=== PATIENT | female | born 1930 | race Caucasian/White ===

== ENCOUNTER 2016-10-27 14:18 | Emergency (ER) | payer MEDICARE, BC ==
--- NOTE | ~2016-10-27 | CR58 ---
[facility] A Service [facility] RADIOLOGY TEXT RESULTS PATIENT: BEVERLY WILSON LOCATION: SED : [birth year] UNIT #: [id number] AGE: [address]: Adrian Mcclendon DO SEX: F ORDER DR: [id number] [place] [id number] E MR#: [id number] Acc #: [id number] NAME: BEVERLY WILSON : 1930 SEX: F STUDY DATE/TIME: 10/27/2016 20:38 UNIT: SED ROOM: STUDY DESCRIPTION: CR Cervical Spine 2 or 3 Views Attending Physician: Adrian Mcclendon Ordering Physician: Adrian Mcclendon Primary Care Physician: Darryl Shabazz M.D. MEDICAL IMAGING REPORT This report is preliminary unless electronic signature is present. EXAM Cervical spine 3 views HISTORY Neck pain after syncope and fall today. Injury. FINDINGS 3 views of the cervical spine demonstrate severe degenerative disc space narrowing at C5-C6 and moderate disc space narrowing at C6-C7. Moderate sized anterior marginal osteophyte at C5-C6. Ydwc-jw-dcuprbmn degenerative facet arthropathy in the upper and lower cervical spine. No precervical soft tissue swelling. Scarring in both lung apices. IMPRESSION 1. No fracture. No acute finding in the cervical spine. 2. Severe degenerative disc space narrowing at C5-C6 and moderate disc space narrowing at C6-C7. Dictated by... Lior Wray M.D. THIS IS AN ELECTRONICALLY VERIFIED REPORT Lior Wray M.D. at 10/28/2016 12:59 PM DFL/candido TD: 10/28/2016 09:05 JOB #: [id number] [facility] A Service [facility] RADIOLOGY TEXT RESULTS PATIENT: BEVERLY WILSON LOCATION: SED : [birth year] UNIT #: [id number] AGE: [address]: Adrian Mcclendon DO SEX: F ORDER DR: MEDICAL IMAGING REPORT Page 1 of 1
--- NOTE | ~2016-10-27 | CT71 ---
[facility] A Service of [facility] RADIOLOGY TEXT RESULTS PATIENT: BEVERLY WILSON LOCATION: SED : [birth year] UNIT #: [id number] AGE: [address]: Adrian Mcclendon DO SEX: F ORDER DR: [id number] [place] [id number] E MR#: [id number] Acc #: [id number] NAME: BEVERLY WILSON : 1930 SEX: F STUDY DATE/TIME: 10/27/2016 15:57 UNIT: SED ROOM: STUDY DESCRIPTION: CT Head Wo Contrast Attending Physician: Adrian Mcclendon Ordering Physician: Adrian Mcclendon Primary Care Physician: Darryl Shabazz M.D. MEDICAL IMAGING REPORT This report is preliminary unless electronic signature is present. EXAM Head CT without HISTORY Fell, loss of consciousness. Hit head on the floor. Chest pain, dizziness, seizure-like activity on the way to the hospital, contusion posteriorly on the left side, palpitations. No cancer history. COMMENT Routine noncontrast head CT is reviewed. There is no prior. This CT examination was performed with one or more of the following radiation dose reduction techniques: automatic exposure control, adjustment of mA and/or kV according to patient size, and iterative reconstruction. Soft tissue swelling is seen left parietal area with hemorrhage consistent with a scalp hematoma. There is no evidence for acute intracranial hemorrhage or extraaxial fluid collection. The ventricles are normal in size and configuration and the moreno-white junction is well-maintained. The basilar cisterns are patent. Mastoid air cells are clear. The visualized paranasal sinuses are clear. The patient has had cataract surgery bilaterally. There is generalized atrophy. Periventricular white matter low-attenuation is nonspecific probably due to small vessel disease. No intracranial mass effect. No acute cortical infarct is suspected but if this is the clinical concern followup imaging is recommended preferably with an MRI if the patient is a candidate. IMPRESSION 1. There is a large left parietal scalp hematoma. There is no acute intracranial injury. If there is clinical concern for acute CVA, followup imaging is recommended preferably with MRI. 2. Atrophy and probable mild sequelae of small vessel disease. [facility] A Service of [facility] RADIOLOGY TEXT RESULTS PATIENT: BEVERLY WILSON [place] [facility] [place] [birth year] UNIT #: [id number] AGE: [address]: Adrian Mcclendon DO SEX: F ORDER DR: Dictated by... Jackie Kapoor M.D. THIS IS AN ELECTRONICALLY VERIFIED REPORT Jackie Kapoor M.D. at 10/28/2016 7:38 AM JOHNNY/jaimee TD: 10/28/2016 06:54 JOB #: [id number] MEDICAL IMAGING REPORT Page 1 of 1
--- NOTE | ~2016-10-27 | EKG ---
PATIENT: BEVERLY WILSON UNIT #: [id number] Ventricular Rate: 55 BPM Atrial Rate: 55 BPM P-R Interval: 154 ms QRS Duration: 98 ms Q-T Interval: 456 ms QTC Calculation(Bezet): 436 ms P South Range: 84 degrees Calculated R South Range: -50 degrees Calculated T South Range: -51 degrees Diagnosis Line: Sinus bradycardia with Premature atrial complexes Diagnosis Line: Pulmonary disease pattern Diagnosis Line: Incomplete right bundle branch block Diagnosis Line: Left anterior fascicular block Diagnosis Line: Left ventricular hypertrophy with repolarization Diagnosis Line: abnormality Diagnosis Line: Cannot rule out Septal infarct (cited on or before Diagnosis Line: 03-AUG-2010) Diagnosis Line: Abnormal ECG Diagnosis Line: When compared with ECG of 03-AUG-2010 16:47, Diagnosis Line: Premature atrial complexes are now Present Diagnosis Line: Left anterior fascicular block is now Present Diagnosis Line: Incomplete right bundle branch block is now Diagnosis Line: Present Diagnosis Line: Questionable change in initial forces of Septal Diagnosis Line: leads Diagnosis Line: Confirmed by HALEY PINK MD ([id number]) on Diagnosis Line: 10/29/2016 1:26:55 PM INTERPRETING MD: APRYL WOOD
--- NOTE | ~2016-10-27 | CR72 ---
[facility]. [facility] A Service of [facility] RADIOLOGY TEXT RESULTS PATIENT: BEVERLY WILSON LOCATION: SED : [birth year] UNIT #: [id number] AGE: [address]: Adrian Mcclendon DO SEX: F ORDER DR: [id number] [place] [id number] E MR#: [id number] Acc #: [id number] NAME: BEVERLY WILSON : 1930 SEX: F STUDY DATE/TIME: 10/27/2016 15:58 UNIT: SED ROOM: STUDY DESCRIPTION: CR Chest Single View Portable Attending Physician: Adrian Mcclendon Ordering Physician: Adrian Mcclendon Primary Care Physician: Darryl Shabazz M.D. MEDICAL IMAGING REPORT This report is preliminary unless electronic signature is present. EXAM Portable chest HISTORY Chest pain and dizzy today. Fell. Confusion. FINDINGS Bilateral emphysema with moderate hyperinflation of both lungs. There is also xpdm-ty-euoeewrs interstitial prominence in both lungs, suggesting interstitial scarring, similar to chest x-ray 04/13/2008. Tortuous descending thoracic aorta. Mild cardiac enlargement. Normal pulmonary vascularity. IMPRESSION No acute findings. Emphysema and chronic interstitial scarring. No focal infiltrates. Dictated by... Lior Wray M.D. THIS IS AN ELECTRONICALLY VERIFIED REPORT Lior Wray M.D. at 10/28/2016 12:51 PM DFL/jaimee TD: 10/28/2016 06:50 JOB #: [id number] MEDICAL IMAGING REPORT Page 1 of 1
[~2016-10-27 14:18] MED LIST: ASPIRIN81 M1 PO; ATENOLOL50 MG PO; BACTRIM DS TABL1 TA1 PO; CIPRO PO; MULTIVITAMIN1 UDCAP PO; VICODIN 5/500 T1 TAB PO
[2016-10-27] MEDS ORDERED: ALLERGY10 M1 PO (14:37)
[2016-10-27] MEDS ORDERED: NITROSTAT0.4 MG SL (14:38)
[2016-10-27 15:31] LABS: BASOPHIL# 0.1 X10e3 (0-0.3); BASOPHIL% 0.9 % (0-2.5); EOSINOPHIL# 0.4 X10e3 (0-0.7); HEMATOCRIT 38.9 % (35.0-45.0); HEMOGLOBIN 12.7 gm/dL (12.0-16.0); LYMPHOCYTE# 1.4 X10e3 (1.0-3.5); LYMPHOCYTE% 14.8 % (17.0-45.0); MEAN CELL VOLUME 105.2 FL (83-96); MEAN CORPUSCULAR HEMOGLOBIN 34.4 PG (28-34); MEAN CORPUSCULAR HGB CONC 32.7 g/dL (30-36); MEAN PLATELET VOLUME 8.8 FL (6.5-11.5); MONOCYTE# 0.5 X10e3 (0-1.0); MONOCYTE% 5.5 % (3.0-12.0); NEUTROPHIL# 7.3 X10e3 (1.5-7.1); NEUTROPHIL% 74.8 % (40-75); PLATELET COUNT 196 X10e3 (140-420); RED CELL DISTRIBUTION WIDTH 12.6 % (11.0-15.5); WHITE BLOOD COUNT 9.7 X10e3 (4.0-10.5)
[2016-10-27 15:42] LABS: DIFF IND NO
[2016-10-27 15:46] LABS: POC - CKMB 1.8 ng/mL (0.0-7.9)
[2016-10-27 15:47] LABS: POC - TROPONIN <0.05 ng/mL (<=0.05)
[2016-10-27 15:58] LABS: ALBUMIN SERUM 4.1 g/dL (3.5-5.0); ALKALINE PHOSPHATASE 78 U/L (32-92); ALT (SGPT) 23 U/L (10-40); AST (SGOT) 30 U/L (10-42); BILIRUBIN,TOTAL 0.3 mg/dL (0.2-2.0); BLOOD UREA NITROGEN 33 mg/dL (9-23); CALCIUM SERUM 9.9 mg/dL (8.4-10.2); CARBON DIOXIDE 26 mmol/L (22-31); CHLORIDE 107 mmol/L (100-111); CREATININE SERUM 1.2 mg/dL (0.6-1.4); GLOM FILT RATE Estimated 40.3 mL/min (>60); GLUCOSE FASTING 102 mg/dL (70-110); POTASSIUM 4.8 mmol/L (3.5-5.1); PROTEIN TOTAL SERUM 6.6 g/dL (6.0-8.3); SODIUM 139 mmol/L (135-145)
[2016-10-27 16:00] LABS: BILIRUBIN, DIRECT <0.1 mg/dL (0.0-0.2); BILIRUBIN,INDIRECT 0.2 mg/dL (0.0-0.9)
[2016-10-27 17:26] LABS: URINE SOURCE CLEAN CATCH
[2016-10-27 17:29] LABS: MICRO INDICATED? YES; URINE APPEARANCE CLEAR; URINE BILIRUBIN NEG (NEG); URINE BLOOD NEG (NEG); URINE COLOR YELLOW; URINE GLUCOSE NEG (NORM); URINE KETONE NEG (NEG); URINE LEUKOCYTE ESTERASE NEG (NEG); URINE NITRATE NEG (NEG); URINE PH 5.5 (5-8); URINE PROTEIN 1+ (NEG); URINE SPECIFIC GRAVITY 1.025 (1.003-1.035); URINE UROBILINOGEN 0.2 MG/DL (NORM)
[2016-10-27 17:34] LABS: CULTURE INDICATED? NO; URINE BACTERIA NEG (NEG); URINE RBC 0-2 /[HPF] (0-2); URINE SQUAMOUS EPITHELIAL CELL FEW /[HPF]
[2016-10-27 17:35] LABS: URINE GRANULAR CAST 0-2 /[HPF]; URINE HYALINE CAST 0-2 /[HPF]; URINE MUCUS PRESENT
[2016-10-27 18:11] LABS: POC - CKMB 2.3 ng/mL (0.0-7.9); POC - TROPONIN <0.05 ng/mL (<=0.05)
== END 2016-10-27 21:41 ==
LOC: SED 14:18
PROVIDERS: Emergency Medicine
DX: S00.03XA Contusion of scalp, initial encounter (principal); R07.9 Chest pain, unspecified; R55 Syncope and collapse; Z23 Encounter for immunization; F17.210 Nicotine dependence, cigarettes, uncomplicated; W19.XXXA Unspecified fall, initial encounter
CPT/HCPCS: 36415; 70450; 71010; 72040; 80048; 80076; 81003; 82553; 83880; 84484; 85025; 90471; 90715; 93005; 99285

== ENCOUNTER → 2017-01-16 | Outpatient (CLI) | payer MEDICARE, BC ==
[~2017-01-16] MED LIST changes: +ALLERGY10 M1 PO; +NITROSTAT0.4 MG SL
--- NOTE | ~2017-01-16 | CT7 ---
[facility] A Service of [facility] RADIOLOGY TEXT RESULTS PATIENT: BEVERLY WILSON LOCATION: [facility] : [birth year] UNIT #: [id number] AGE: [address]: Darryl Shabazz MD SEX: F ORDER DR: [id number] [place] [id number] O MR#: [id number] Acc #: [id number] NAME: BEVERLY WILSON : 1930 SEX: F STUDY DATE/TIME: 01/16/2017 10:23 UNIT: [facility] ROOM: STUDY DESCRIPTION: CT Abdomen Wo Cont Attending Physician: Darryl Shabazz M.D. Referring Physician: Darryl Shabazz M.D. Ordering Physician: Darryl Shabazz M.D. Primary Care Physician: Darryl Shabazz M.D. MEDICAL IMAGING REPORT This report is preliminary unless electronic signature is present. EXAM CT abdomen without contrast. INDICATIONS Pulsatile abdominal mass since October 21, 2016. PROCEDURE Unenhanced CT of the abdomen. This CT exam was performed with one or more of the following radiation dose reduction techniques: automatic exposure control, adjustment of mA and/or kV according to patient size, and iterative reconstruction. COMPARISON 08/03/2010 FINDINGS Emphysematous change in the lung bases. Liver, spleen unremarkable. Unremarkable unenhanced appearance of the kidneys. The adrenal glands and pancreas show no acute abnormality. No radiodense gallstones. Moderate colonic stool burden. Included bowel loops are nondilated. There is moderate to moderately severe atherosclerotic calcification in the abdominal aorta, but no evidence for aneurysm. No aggressive appearing bone lesion. No abnormal soft tissue mass is seen in the abdomen. IMPRESSION 1. No acute findings. 2. Moderate atherosclerotic calcification in the abdominal aorta but no evidence for aneurysm. 3. Moderate colonic stool burden. Dictated by... Cuco Palacios M.D. [facility] A Service of [facility] RADIOLOGY TEXT RESULTS PATIENT: BEVERLY WILSON LOCATION: [facility] : [birth year] UNIT #: [id number] AGE: [address]: Darryl Shabazz MD SEX: F ORDER DR: THIS IS AN ELECTRONICALLY VERIFIED REPORT Cuco Palacios M.D. at 01/20/2017 8:19 AM SAPPHIRE/dion TD: 01/16/2017 19:38 JOB #: [id number] MEDICAL IMAGING REPORT Page 1 of 1
[2017-01-16 09:55] LABS: POC - CREATININE 1.87 mg/dL (0.44-1.03)
== END | disposition home or self-care (01) ==
LOC: SCT 09:14
PROVIDERS: General Practice
DX: R19.00 Intra-abdominal and pelvic swelling, mass and lump, unspecified site (principal); I70.0 Atherosclerosis of aorta
CPT/HCPCS: 74150; 82565